=== PATIENT | female | born 1985 | race Caucasian/White ===

== ENCOUNTER → 2018-01-11 18:21 | Outpatient (CLI) | payer OTHER, SELFPAY ==
--- NOTE | 2018-01-11 | DI.MRI.S_ITS ---
PROCEDURE: MR FOOT RT WO CON INDICATIONS: PAIN IN RT FOOT TECHNIQUE: Noncontrast sagittal T1 spin echo and T2 fast spin echo with fat saturation, long-axis T1 spin echo and T2 fast spin echo with fat saturation, short-axis T1 spin echo and T2 fast spin echo with fat saturation through the forefoot. COMPARISON: None. FINDINGS: Image quality: Excellent. Bones and joints: No bone marrow contusions or metatarsal stress fractures. The sesamoid bones appear in expected positions, without internal edema. No metatarsophalangeal joint degeneration. No intraosseous lesions. Soft tissues: The visualized plantar foot muscles demonstrate normal signal and bulk. Visualized flexor and extensor tendons appear intact, without tenosynovitis. The distal insertions of the peroneus brevis and longus tendons appear intact. The principal Lisfranc ligament appears intact. No soft tissue ganglion cysts or bursal fluid collections. Sagittal images demonstrate no evidence for plantar plate tears. IMPRESSION: Mild fluid between the first and second and third and fourth metatarsal heads raising possibility of bursitis in these locations. Please correlate clinically. Moderate first MTP joint degeneration. Further evaluation with foot radiographs could be performed as clinically necessary. Dictated by: Doc Elizabeth M.D. on 01/12/2018 at 8:26 Approved by: Doc Elizabeth M.D. on 01/12/2018 at 8:39
--- NOTE | 2018-01-11 | DI.MRI.S_ITS ---
PROCEDURE: MR ANKLE RT WO CON INDICATIONS: FOOT PAIN TECHNIQUE: Noncontrast sagittal T1 spin echo and T2 fast spin echo with fat saturation, axial proton density fast spin echo and T2 fast spin echo with fat saturation, coronal T1 spin echo and T2 fast spin echo with fat saturation through the ankle/hindfoot. COMPARISON: None. FINDINGS: Image quality: Excellent. Bones and joints: No bone marrow contusions or fractures. No hindfoot coalitions. No osteochondral injuries of the talar dome. No pathologic joint effusions. Medial structures: The posterior tibialis, flexor digitorum longus, and flexor hallucis longus tendons are intact. There is mild fluid surrounding the posterior tibialis and flexor digitorum longus tendons in keeping with tenosynovitis. The posterior tibial neurovascular bundle appears normal within the tarsal tunnel, without extrinsic mass effect. The deep layer (anterior and posterior tibiotalar ligaments) and superficial layer (tibionavicular, tibiospring, and tibiocalcaneal ligaments) of the deltoid ligament appear normal. The spring ligament components (superomedial calcaneonavicular, medioplantar oblique calcaneonavicular, and inferoplantar longitudinal ligaments) are intact. Lateral structures: The anterior talofibular, calcaneofibular, and posterior talofibular ligaments appear intact. More superiorly, the anterior and posterior tibiofibular ligaments appear intact, as is the intermalleolar ligament. The tibiofibular syndesmosis is normal in width at 2 mm or less. The peroneus longus and brevis tendons appear intact although there is small amount of fluid adjacent to both tendons, in keeping with tenosynovitis. Adjacent bony peroneal tubercle and retrotrochlear prominence are normal in size. The sinus tarsi demonstrates normal fatty signal, without edema, fibrosis, or cyst formation. Visualized sinus tarsi components (cervical ligament, interosseous talocalcaneal ligament, roots of the inferior extensor retinaculum) appear normal. The calcaneonavicular and calcaneocuboid components of the bifurcate ligament appear intact. The dorsal calcaneocuboid ligament appears intact. Anterior structures: The tibialis anterior, extensor hallucis longus, and extensor digitorum longus tendons appear intact. There is small amount of fluid surrounding the anterior tibialis tendon in keeping with tenosynovitis The dorsal talonavicular ligament appears intact. Posterior and plantar structures: Achilles tendon is mildly thickened suggesting minimal chronic tendinopathy. Thickening of the medial band of the plantar fascia at the calcaneal attachment with adjacent soft tissue edema IMPRESSION: Diffuse tenosynovitis involving the posterior tibialis, flexor digitorum longus, peroneal longus and brevis, and anterior tibialis tendons. Medial band plantar fasciitis. Minimal chronic Achilles tendinopathy/thickening. Dictated by: Doc Elizabeth M.D. on 01/12/2018 at 8:17 Approved by: Doc Elizabeth M.D. on 01/12/2018 at 8:26
== END ==
PROVIDERS: PCP Family Medicine; Visit Provider Podiatrist
DX: M19.071 Primary osteoarthritis, right ankle and foot (principal); M79.671 Pain in right foot; M65.871 Other synovitis and tenosynovitis, right ankle and foot; M72.2 Plantar fascial fibromatosis; R60.0 Localized edema; R26.2 Difficulty in walking, not elsewhere classified
CPT/HCPCS: 73718; 73721

== ENCOUNTER 2019-12-19 11:43 | Emergency (ER) | payer OTHER, SELFPAY ==
[2019-12-19] VITALS (18 sets, daily range): BP systolic 94–122; BP diastolic 55–75; PULSE 61–81; RESP 11–22; TEMP 36.3; O2SAT 93–98; BMI 47.5
--- NOTE | 2019-12-19 11:54 | DI.CT.S_ITS ---
PROCEDURE: CT HEAD/BRAIN WO CON INDICATIONS: 2 week history of slurred speech TECHNIQUE: Noncontrast 4.5 mm thick angled axial sections acquired from the foramen magnum to the vertex, with coronal and sagittal reformats. For radiation dose reduction, the following was used: automated exposure control, adjustment of mA and/or kV according to patient size. COMPARISON: None. FINDINGS: Image quality: Excellent. CSF spaces: Basal cisterns are patent. No extra-axial fluid collections. Ventricles are normal in size and shape. Brain: No midline shift. No intracranial masses or hemorrhage. Darden-white matter interface is normal. Skull and face: Calvarium and visualized facial bones are intact, without suspicious lesions. Sinuses: Visualized sinuses and mastoids are clear. IMPRESSION: No acute intracranial abnormality demonstrated. Dictated by: Shakeel Briscoe M.D. on 12/19/2019 at 12:15 Approved by: Shakeel Briscoe M.D. on 12/19/2019 at 12:17
--- NOTE | 2019-12-19 12:09 | ED_ITS ---
HPI - Neuro Symptoms/Deficit General Chief Complaint: Neuro Symptoms/Deficit Stated Complaint: trouble saying words, cant feel tongue Time Seen by Provider: 12/19/19 12:07 Source: patient Mode of arrival: Ambulatory Limitations: no limitations History of Present Illness HPI Narrative: The patient complains of slurred speech. She has been having episodes of slurred speech for about 2 weeks, increased this morning. She was a work and found herself unable to speak. She is speaking well at this time, other than occasional stutter. She denies recent illness or injury. She denies recent vision changes, difficulty swelling, confusion, or focal weakness or numbness in the face or extremities. She is not . She does not smoke marijuana or use drugs. She occasionally uses alcohol, none recent. She has no history of neurologic issues. Her medications are reviewed. She was recently started on Synthroid. On Anticoagulants: No Related Data Home Medications Medication Instructions Recorded Confirmed acetaminophen 1,000 mg PO Q6HP PRN #0 09/20/16 09/26/18 sertraline 50 mg tablet 100 mg PO DAILY 07/13/18 12/19/19 aripiprazole 15 mg PO DAILY 12/19/19 12/19/19 Previous Rx's Medication Instructions Recorded celecoxib 200 mg capsule 200 mg PO DAILY #30 cap 01/08/19 diclofenac sodium 1 % topical gel 2 g TOP QID #100 gram MDD 8 gm 01/08/19 gabapentin 300 mg capsule 300 mg PO TID #90 cap 01/08/19 Allergies Allergy/AdvReac Type Severity Reaction Status Date / Time aloe vera [ALOE VERA] Allergy Unknown Verified 12/19/19 11:50 amoxicillin [AMOXICILLIN] Allergy Unknown Verified 12/19/19 11:50 morphine [MORPHINE] Allergy Unknown Verified 12/19/19 11:50 Review of Systems Constitutional Constitutional: Denies chills, Denies fever(s), Denies lethargy and Denies weakness Comments: No recent illness Eyes Eyes: Denies blurry vision and Denies change in vision ENT Ears, Nose, Mouth, and Throat: Denies change in voice, Denies vertigo, Denies dizziness, Denies neck pain and Denies sore throat Cardiovascular Cardiovascular: Denies chest pain, Denies irregular heart rhythm, Denies lightheadedness, Denies palpitations and Denies dyspnea Respiratory Respiratory: Denies cough, Denies dyspnea and Denies wheezing Gastrointestinal Gastrointestinal: Denies abdominal pain, Denies change in bowel habits, Denies diarrhea, Denies nausea and Denies vomiting Genitourinary Genitourinary: Denies dysuria Genitourinary: Denies dysuria Comments: She is not . Musculoskeletal Musculoskeletal: Denies arthralgias, Denies back pain, Denies myalgias, Denies neck pain and Denies numbness Integumentary/Breasts Skin/Breast: Denies pruritus, Denies erythema, Denies rash and Denies wounds Neurologic Neurologic: Denies confusion, Denies vertigo, Denies dizziness, Denies memory loss, Denies numbness and Denies weakness Psychiatric Psychiatric: Denies anxiety, Denies confusion, Denies depression and Denies memory loss Endocrine Endocrine: Denies palpitations Allergic/Immunologic Allergic/Immunologic: Denies wheezing Patient History Medical History (Updated 12/20/19 @ 08:38 by Doroteo Nuñez MD) Anemia (Acute) Anxiety (Chronic) Depression (Chronic) History of section (02/12/16) Placenta increta (Inactive) Social History Smoking Status: Unknown if ever smoked Smoking Status: Unknown if ever smoked alcohol intake frequency: holidays/special occasions only Substance Use Type: does not use Exam Initial Vital Signs Initial Vital Signs: Vital Signs Temperature 97.4 F L 12/19/19 11:45 Pulse Rate 78 12/19/19 11:45 Respiratory Rate 20 12/19/19 11:45 Blood Pressure 122/74 12/19/19 11:45 Pulse Oximetry 98 12/19/19 11:45 Const General: cooperative and well developed Nutritional Appearance: well nourished Other: Her speech is normal at this time. [facility] [place] Head: normocephalic and atraumatic Throat: posterior oropharynx normal Eyes General: appearance normal, both eyes and all related structures Eyelids: eyelids normal Conjunctivae: conjunctivae normal Sclera: sclerae normal Pupils: PERRL EOM: EOM intact bilaterally Neck Neck: No JVD Thyroid: thyroid normal Chest Chest: normal inspection of the chest Resp Auscultation: clear to auscultation bilaterally Cardio Rate: regular rate Rhythm: regular rhythm Heart Sounds: S1 normal, S2 normal, no click, no gallops, no murmurs and no rubs Pulses: normal peripheral pulses GI Inspection: non-distended Palpation: soft, no hepatosplenomegaly, No guarding, No pulsatile mass and No tender Auscultation: normal bowel sounds Back/Spine/Pelvis Back: No CVA tenderness Skin General: no rashes or lesions noted, No jaundice and No petechiae Neuro General: patient alert, patient oriented x3, gait normal and no focal motor deficits Speech: speech normal Extrem General: full ROM, no pedal edema and no calf tenderness Psych Mental Status: mental status grossly normal Scores NIH Stroke Scale Level of Conciousness: Alert, keenly responsive Ask month/age: Answers both questions correctly. Open/close eyes, close hand: Performs both tasks correctly Best gaze horizontal: Normal Visual balderas: No visual loss Facial palsy: Normal symetrical movement Left arm drift: No drift for full 10 sec Right arm drift: No drift for full 10 sec Left leg drift: No drift for full 10 sec Right leg drift: No drift for full 10 sec Limb ataxia: Absent Sensory on face/arms/legs: Normal, no sensory loss Best language: No aphasia, normal Dysarthria: Normal Extinction or inattention: No abnormality Total NIH Stroke scale score: 0 Course Course Course Narrative: The patient has a history of depression and anxiety. Her evaluation is benign for neurologic deficits, infection, or significant abnormalities with the lab evaluation. She has no arrhythmia, there is no evidence of a cardiovascular issue. I wonder for complaint may represent anxiety, versus perhaps side effects with her current medications, especially Abilify. I have asked her to follow-up with her doctor to discuss her current medications. Orders Ordered: ED Orders 12/19/19 11:54 CT head/brain wo con Stat 12/19/19 12:19 Complete Blood Count AUTO DIFF Stat Comprehensive Metabolic Panel Stat Ethanol (ETOH) Stat Prothrombin Time INR Stat 12/19/19 13:12 Test Urine Stat Urine Drug Screen, Rapid Stat Vital Signs Vital signs: Vital Signs - 8 hr 12/19/19 11:45 12/19/19 11:51 12/19/19 12:13 Temperature 97.4 F L Pulse Rate 78 81 69 Respiratory Rate 20 20 Blood Pressure 122/74 Pulse Oximetry 98 98 97 12/19/19 12:30 12/19/19 13:08 12/19/19 13:09 Temperature Pulse Rate 75 63 62 Respiratory Rate 15 20 18 Blood Pressure Pulse Oximetry 97 98 97 12/19/19 13:30 12/19/19 14:00 12/19/19 14:30 Temperature Pulse Rate 62 62 63 Respiratory Rate 12 12 Blood Pressure 102/57 L 100/57 L Pulse Oximetry 95 96 94 12/19/19 14:31 12/19/19 14:36 12/19/19 15:00 Temperature Pulse Rate 61 66 62 Respiratory Rate 19 11 L Blood Pressure 113/57 L Pulse Oximetry 94 98 95 12/19/19 15:01 12/19/19 15:30 12/19/19 16:00 Temperature Pulse Rate 66 63 65 Respiratory Rate 16 15 22 Blood Pressure 106/55 L 105/58 L 108/60 Pulse Oximetry 98 98 98 12/19/19 16:30 12/19/19 16:31 Temperature Pulse Rate 69 67 Respiratory Rate 17 Blood Pressure 94/60 Pulse Oximetry 93 97 MDM - Neuro Symptoms/Deficit Lab Data Result diagrams: 12/19/19 12:19 12/19/19 12:19 Labs: Lab Results 12/19/19 12/19/19 12/19/19 Range/Units 12:19 12:19 12:19 WBC 6.3 (4.5-11.0) X10^3/uL RBC 4.89 (4.0-5.2) X10^6/uL Hgb 13.7 (12.0-16.0) g/dL Hct 40.3 (36-46) % MCV 82.5 (80-100) fL MCH 28.0 (26-34) PG MCHC 34.0 (30-36) % RDW 14.7 (11.6-14.8) % Plt Count 170 (150-400) X10^3/uL Neut % (Auto) 59.7 (50-75) % Lymph % (Auto) 32.9 (25-40) % Harvey % (Auto) 5.6 (3-14) % Eos % (Auto) 0.9 L (2-4) % Baso % (Auto) 0.9 (0-2) % Neut # (Auto) 3800 (2272-9029) /uL Lymph # (Auto) 2100 (8886-6803) /uL Harvey # (Auto) 400 (0-900) /uL Eos # (Auto) 100 (0-450) /uL Baso # (Auto) 100 (0-100) /uL PT 11.1 (10.1-12.7) SECONDS INR 1.0 (0.9-1.3) Sodium 138 (137-145) mmol/L Potassium 4.0 (3.4-5.1) mmol/L Chloride 104 (98-107) mmol/L Carbon Dioxide 27 (22-32) mmol/L BUN 10 (7-17) mg/dL Creatinine 0.66 (0.52-1.04) mg/dL Estimated GFR > 60.0 (>60) mL/min BUN/Creatinine Ratio 15.2 (6-22) Glucose 130 H (70-100) mg/dL Calcium 9.5 (8.4-10.2) mg/dL Total Bilirubin 0.8 (0.2-1.3) mg/dL AST 42 H (14-36) IU/L ALT 50 H (<35) IU/L Alkaline Phosphatase 89 (38-126) U/L Total Protein 7.9 (6.3-8.2) g/dL Albumin 4.6 (3.5-5.0) g/dL Globulin 3.3 (1.7-4.1) g/dL Albumin/Globulin Ratio 1.4 (1.0-2.8) Urine Test (Negative) U Opiates 300ng/mL cut (Negative) Ur Oxycodone Screen (Negative) Urine Methadone Screen (Negative) Ur Barbiturates Screen (Negative) U Tricyclic Antidepress (Negative) Ur Phencyclidine Scrn (Negative) Ur Amphetamines Screen (Negative) U Methamphetamines Scrn (Negative) Ur MDMA Scrn (Ecstasy) (Negative) U Benzodiazepines Scrn (Negative) Urine Cocaine Screen (Negative) U Marijuana (THC) Screen (Negative) Ethyl Alcohol < 10 ( - 10) mg/dL 12/19/19 12/19/19 Range/Units 13:12 13:12 WBC (4.5-11.0) X10^3/uL RBC (4.0-5.2) X10^6/uL Hgb (12.0-16.0) g/dL Hct (36-46) % MCV (80-100) fL MCH (26-34) PG MCHC (30-36) % RDW (11.6-14.8) % Plt Count (150-400) X10^3/uL Neut % (Auto) (50-75) % Lymph % (Auto) (25-40) % Harvey % (Auto) (3-14) % Eos % (Auto) (2-4) % Baso % (Auto) (0-2) % Neut # (Auto) (3336-1279) /uL Lymph # (Auto) (2860-8675) /uL Harvey # (Auto) (0-900) /uL Eos # (Auto) (0-450) /uL Baso # (Auto) (0-100) /uL PT (10.1-12.7) SECONDS INR (0.9-1.3) Sodium (137-145) mmol/L Potassium (3.4-5.1) mmol/L Chloride (98-107) mmol/L Carbon Dioxide (22-32) mmol/L BUN (7-17) mg/dL Creatinine (0.52-1.04) mg/dL Estimated GFR (>60) mL/min BUN/Creatinine Ratio (6-22) Glucose (70-100) mg/dL Calcium (8.4-10.2) mg/dL Total Bilirubin (0.2-1.3) mg/dL AST (14-36) IU/L ALT (<35) IU/L Alkaline Phosphatase (38-126) U/L Total Protein (6.3-8.2) g/dL Albumin (3.5-5.0) g/dL Globulin (1.7-4.1) g/dL Albumin/Globulin Ratio (1.0-2.8) Urine Test Negative (Negative) U Opiates 300ng/mL cut Negative (Negative) Ur Oxycodone Screen Negative (Negative) Urine Methadone Screen Negative (Negative) Ur Barbiturates Screen Negative (Negative) U Tricyclic Antidepress Negative (Negative) Ur Phencyclidine Scrn Negative (Negative) Ur Amphetamines Screen Negative (Negative) U Methamphetamines Scrn Negative (Negative) Ur MDMA Scrn (Ecstasy) Negative (Negative) U Benzodiazepines Scrn Negative (Negative) Urine Cocaine Screen Negative (Negative) U Marijuana (THC) Screen Positive H (Negative) Ethyl Alcohol ( - 10) mg/dL Imaging Data CT scan - head: Radiologist's Impression: No acute findings ECG Data Attestation: I personally reviewed and interpreted this ECG as follows: (Normal sinus rhythm. Normal intervals. No ectopy. No acute findings.) Discharge Plan Departure Patient Disposition: Home Clinical Impression: Dysarthria Discharge Date/Time: 12/19/19 17:13 Instructions: Dysarthria Activity Restrictions/Additional Instructions: Her speech issues are not from a stroke or any major metabolic issues. There is no suggestion of infection. I suspect your medications. Please review her medications with her doctor. Return here as needed. Prescriptions: No Action acetaminophen 500 MG tablet 1,000 mg PO Q6HP PRNQty: 0 RF: 0 celecoxib [Celebrex] 200 mg capsule 200 mg PO DAILY Qty: 30 RF: 2 gabapentin 300 mg capsule 300 mg PO TID Qty: 90 RF: 2 diclofenac sodium 1 % gel 2 g TOP QID MDD 8 gm Qty: 100 RF: 5 aripiprazole 15 mg Tablet 15 mg PO DAILY RF: 0 sertraline 50 mg tablet 100 mg PO DAILY RF: 0 Referrals: [place] DO [Primary Care Provider] -
[2019-12-19 12:35] LABS: Add Manual Diff / Slide Review NO; Basophils Absolute Auto 100 /uL (0-100); Basophils Percent Auto 0.9 % (0-2); Eosinophils Absolute Auto 100 /uL (0-450); Eosinophils Percent Auto 0.9 % (2-4); Hematocrit 40.3 % (36-46); Hemoglobin 13.7 g/dL (12.0-16.0); Lymphocytes Absolute Auto 2100 /uL (1100-4500); Lymphocytes Percent Auto 32.9 % (25-40); Mean Corpuscular Volume 82.5 fL (80-100); Monocytes Absolute Auto 400 /uL (0-900); Monocytes Percent Auto 5.6 % (3-14); Neutrophils Absolute Auto 3800 /uL (1500-7000); Neutrophils Percent Auto 59.7 % (50-75); Platelet Count 170 X10^3/uL (150-400); Red Blood Cell Count 4.89 X10^6/uL (4.0-5.2); Red Cell Distribution Width 14.7 % (11.6-14.8); White Blood Cell Count 6.3 X10^3/uL (4.5-11.0)
[2019-12-19 12:37] LABS: Prothrombin Time 11.1 SECONDS (10.1-12.7)
[2019-12-19 12:42] LABS: Alanine Aminotransferase 50 IU/L (<35); Albumin 4.6 g/dL (3.5-5.0); Albumin Globulin Ratio 1.4 (1.0-2.8); Alkaline Phosphatase 89 U/L (38-126); Aspartate Aminotransferase 42 IU/L (14-36); BUN Creatinine Ratio 15.2 (6-22); Bilirubin Total 0.8 mg/dL (0.2-1.3); Blood Urea Nitrogen 10 mg/dL (7-17); Calcium 9.5 mg/dL (8.4-10.2); Carbon Dioxide 27 mmol/L (22-32); Chloride 104 mmol/L (98-107); Estimated Glomerular Filt Rate > 60.0 mL/min (>60); Ethanol (ETOH) < 10 mg/dL; Globulin 3.3 g/dL (1.7-4.1); Glucose 130 mg/dL (70-100); HEMOLYSIS < 15 (0-50); Sodium 138 mmol/L (137-145); Total Protein 7.9 g/dL (6.3-8.2)
[2019-12-19 13:25] LABS: UR Morphine/Opiate cutoff 300 Negative (Negative); Ur Creatinine Normal (Normal); Ur Specific Gravity Normal (Normal); Urine Amphetamines Negative (Negative); Urine Barbiturates Negative (Negative); Urine Benzodiazepines Negative (Negative); Urine Cocaine Negative (Negative); Urine MDMA Negative (Negative); Urine Methadone Negative (Negative); Urine Methamphetamines Negative (Negative); Urine Oxycodone Negative (Negative); Urine Phencyclidine Negative (Negative); Urine Tetrahydrocannabinol Positive (Negative); Urine Tricyclic Antidepressant Negative (Negative); Urine pH Normal (Normal)
[2019-12-19 15:44] LABS: Pregnancy Test Urine Negative (Negative)
== END 2019-12-19 17:13 | disposition home or self-care (01) ==
PROVIDERS: Emergency Provider Emergency Medicine; PCP Family Medicine
DX: R47.1 Dysarthria and anarthria (principal)
CPT/HCPCS: 36415; 70450; 80053; 80305; 80320; 81025; 85025; 85610; 99284